=== PATIENT | male | born 1985 | race Caucasian/White ===

== ENCOUNTER 2016-12-08 18:30 | Emergency (ER) | payer MEDICAID ==
--- NOTE | 2016-12-08 18:49 | ED Physician Chart ---
Chief Complaint/HPI - Patient Information Date Seen:: 12/08/16 Time Seen:: 18:44 Chief Complaint:: toothache History of Present Illness:: pt here for pain at l lower posterior molar x 2 weeks. he has had this before since he broke the crown yrs ago while flossing. his dental insurance lapsed and he wont have it back till dec 18. he had some leftover abx (?doesnt know name) he started but has run out and a nearby clinic refused him care due to no insurance. he uses advil for pain w ok relief. no face swelling or trouble breathing or swallowing. no fever. no DALY> no rash. no stiff neck/. no sob. Allergies:: Allergies Allergy/AdvReac Type Severity Reaction Status Date / Time No Known Allergies Allergy Verified 12/08/16 18:37 Vitals:: Vital Signs - 8 hr 12/08/16 18:37 Temp 98.4 F HR 62 RR 16 BP 129/88 O2 Sat % 98 Historian:: Patient Review of Systems - Review of Systems General/Constitutional: No fever, No chills, No weight loss, No weakness, No diaphoresis, No edema, No loss of appetite Skin: No skin lesions, No rash, No bruising Head: No headache, No light-headedness Eyes: No loss of vision, No pain, No diplopia ENT: No earache, No nasal drainage, No sore throat, No tinnitus, Other ( toothache) Neck: No neck pain, No swelling, No thyromegaly, No stiffness, No mass noted Cardio Vascular: No chest pain, No palpitations, No PND, No orthopnea, No edema Pulmonary: No SOB, No cough, No sputum, No wheezing GI: No nausea, No vomiting, No diarrhea, No pain, No melena, No hematochezia, No constipation, No hematemesis G/U: No dysuria, No frequency, No hematuria Musculoskeletal: No bone or joint pain, No back pain, No muscle pain Endocrine: No polyuria, No polydipsia Psychiatric: No prior psych history, No depression, No anxiety, No suicidal ideation Hematopoietic: No bruising, No lymphadenopathy Allergic/Immuno: No urticaria, No angioedema Neurological: No syncope, No focal symptoms, No weakness, No paresthesia, No headache, No seizure, No dizziness, No confusion, No vertigo Past Medical History - Past Medical History Past Medical History: No significant medical hx Social History: Non Smoker (past tob use) Medication: Reviewed Family Medical History - Family Member Father Hx Family Hypertension: Yes Hx Family Diabetes: Yes Physical Exam - Physical Examination General/Constitutional: Awake, Well-developed, well-nourished, Alert, No distress, GCS 15, Non-toxic appearing, Ambulatory Head: Atraumatic Eyes: Lids, conjuctiva normal, PERRL, EOMI Skin: Nl inspection, No rash, No skin lesions, No ecchymosis, Well hydrated, No lymphadenopathy ENMT: External ears, nose nl, Nasal exam nl, Lips, teeth, gums nl, Oropharynx nl , Tonsils nl Other ENMT comments:: no peridontal inflamation. no stridor. nrml voice. no sob. left lower posterior molar has 1/5 crown missing at post/medial aspect. no root exposed. tndr to palpation but no visible or palpable abscess. pharynx patent benign. neck supple. alert/nontoxic. Neck: Nontender, Full ROM w/o pain, No JVD, No nuchal rigidity, No bruit, No mass, No stridor Respiratory: Nl effort/Exclusion, Clear to Auscultation, No Wheeze/Rhonchi/Rales Cardio Vascular: RRR, No murmur, gallop, rubs, NL S1 S2 GI: No tenderness/rebounding/guarding, No organomegaly, No hernia, Normal BS's, Nondistended, No mass/bruits, No McBurney tenderness : No CVA tenderness Extremities: No tenderness or effusion, Full ROM, normal strength in all extremities, No edema, Normal digits & nails Neuro/Psych: Alert/oriented, DTR's symmetric, Normal sensory exam, Normal motor strength, Judgement/insight normal, Mood normal, Normal gait, No focal deficits Misc: normal gait, Normal back, No paraspinal tenderness ED Septic Shock - . Is Septic Shock (SBP<90, OR Lactate>4 mmol\L) present?: No - <6hrs of presentation: Vital Signs: Vital Signs - 8 hr 12/08/16 18:37 Temp 98.4 F HR 62 RR 16 BP 129/88 O2 Sat % 98 Reassessment (Disposition) - Reassessment Reassessment:: rx pcn v 500 bid x 2 wks. see dentist rachana. use advil for pain..ret if pain worse or facial swelling or sob. Reassessment Condition:: Improved - Diagnosis Diagnosis:: tooth ache/ broken crown left posterior lower molar - Patient Disposition Discharge/Transfer:: Home Condition at Disposition:: Improved
== END 2016-12-08 19:20 | disposition home or self-care (01) ==
LOC: ER 18:30
DX: K08.89 Other specified disorders of teeth and supporting structures (principal)
CPT/HCPCS: 99283; 96372; J0696; J2001; Z7502